=== PATIENT | male | born 1960 | race Caucasian/White ===

== ENCOUNTER → 2017-06-07 | Outpatient (CLI) | payer OTHER, MEDICAID ==
[~2017-06-07] MED LIST: ACETAMINOPHEN-1 EAC1 PO; IBUPROFEN 800800 M1; MEDROLDOSEPACK PO; NORCO 10-325 T1 EACH; ROBAXIN500 MG PO
== END ==
LOC: M.RAD 11:30
DX: M47.896 Other spondylosis, lumbar region (principal)

== ENCOUNTER 2018-03-31 21:02 | Emergency (ER) | payer OTHER, MEDICAID ==
[~2018-03-31] VITALS: Ht 180.3 cm; Wt 87.5 kg
[2018-03-31] MEDS ORDERED: VENTOLIN HFA 1818 GM INH (21:16)
[2018-03-31] MEDS ORDERED: SYMBICORT160 MCG/4. INH (21:17)
[2018-03-31 22:04] LABS: ABSOLUTE BASOPHILS 0.1 thou/uL (0.0-0.2); ABSOLUTE EOSINOPHILS 0.1 thou/uL (0.0-0.7); ABSOLUTE LYMPHOCYTES 1.5 thou/uL (0.8-5.3); ABSOLUTE MONOCYTES 0.8 thou/uL (0.0-1.2); ABSOLUTE NEUTROPHILS 6.9 thou/uL (1.6-8.1); BASOPHILS 0.8 %; EOSINOPHILS 0.7 %; HEMATOCRIT 43.9 % (42.0-52.0); HEMOGLOBIN 14.4 gm/dL (14.0-18.0); LYMPHOCYTES 15.9 %; MCH 29.6 pg (26.0-34.0); MCHC 32.8 g/dL (28.0-37.0); MCV 90.3 fL (80.0-100.0); MONOCYTES 8.2 %; MPV 6.7 fl. (7.2-11.1); NUCLEATED RBCS 0 /100WBC; PLATELET COUNT* 352 thou/uL (150-400); POLYS 74.4 %; RBC 4.86 mil/uL (4.50-6.00); RDW-CV 13.3 % (10.5-14.5); WBC 9.3 thou/uL (4.0-11.0)
[2018-03-31 22:10] LABS: CREATININE 1.3 mg/dL (0.6-1.3)
[2018-03-31 22:16] LABS: PROTIME 10.7 Seconds (9.20-11.50)
[2018-03-31] MEDS ORDERED: ONDANSETRON HCL4 M2 PO (22:16)
[2018-03-31 22:17] LABS: APTT 26.6 Seconds (25.0-31.3)
[2018-03-31 23:05] VITALS: BP 176/73
== END 2018-03-31 23:08 | disposition home or self-care (01) ==
LOC: M.ERS 21:02
PROVIDERS: Nurse Practitioner Family
DX: S06.0X0A Concussion without loss of consciousness, initial encounter (principal); S01.01XA Laceration without foreign body of scalp, initial encounter; S02.2XXA Fracture of nasal bones, initial encounter for closed fracture; M54.9 Dorsalgia, unspecified; G89.29 Other chronic pain; Y00.XXXA Assault by blunt object, initial encounter; Y93.89 Activity, other specified; Y92.89 Other specified places as the place of occurrence of the external cause; Y99.8 Other external cause status

== ENCOUNTER 2018-04-12 19:27 | Emergency (ER) | payer OTHER, MEDICAID ==
[~2018-04-12] VITALS: Ht 180.3 cm; Wt 86.2 kg
[~2018-04-12 19:27] MED LIST changes: +ONDANSETRON HCL4 M2 PO; +SYMBICORT160 MCG/4. INH; +VENTOLIN HFA 1818 GM INH
[2018-04-12] MEDS ORDERED: AMOXICILLIN 50500 MG (19:43)
[2018-04-12] MEDS ORDERED: NORCO 5-325 TA1 EACH PO (20:17)
[2018-04-12 20:43] VITALS: BP 149/99
== END 2018-04-12 20:44 | disposition home or self-care (01) ==
LOC: M.ERS 19:27
DX: S93.691A Other sprain of right foot, initial encounter (principal); S93.491A Sprain of other ligament of right ankle, initial encounter; F17.200 Nicotine dependence, unspecified, uncomplicated; M54.9 Dorsalgia, unspecified; G89.29 Other chronic pain; Z90.79 Acquired absence of other genital organ(s); W10.9XXA Fall (on) (from) unspecified stairs and steps, initial encounter; Y92.89 Other specified places as the place of occurrence of the external cause; Y93.89 Activity, other specified; Y99.8 Other external cause status

== ENCOUNTER 2019-02-14 13:38 | Emergency (ER) | payer OTHER, MEDICAID ==
[~2019-02-14] VITALS: Ht 180.3 cm; Wt 81.7 kg
[~2019-02-14 13:38] MED LIST changes: +AMOXICILLIN 50500 MG; +NORCO 5-325 TA1 EACH PO
[2019-02-14 14:14] LABS: ABSOLUTE BASOPHILS 0.1 thou/uL (0.0-0.2); ABSOLUTE EOSINOPHILS 0.7 thou/uL (0.0-0.7); ABSOLUTE LYMPHOCYTES 2.8 thou/uL (0.8-5.3); ABSOLUTE MONOCYTES 0.8 thou/uL (0.0-1.2); ABSOLUTE NEUTROPHILS 4.1 thou/uL (1.6-8.1); BASOPHILS 1.3 %; EOSINOPHILS 8.1 %; HEMATOCRIT 48.8 % (42.0-52.0); HEMOGLOBIN 16.4 gm/dL (14.0-18.0); LYMPHOCYTES 32.8 %; MCH 29.7 pg (26.0-34.0); MCHC 33.6 g/dL (28.0-37.0); MCV 88.3 fL (80.0-100.0); MONOCYTES 9.7 %; MPV 7.3 fl. (7.2-11.1); NUCLEATED RBCS 0 /100WBC; PLATELET COUNT* 346 thou/uL (150-400); POLYS 48.1 %; RBC 5.53 mil/uL (4.50-6.00); RDW-CV 13.4 % (10.5-14.5); WBC 8.5 thou/uL (4.0-11.0)
[2019-02-14 14:23] LABS: CALCIUM 8.8 mg/dL (8.5-10.1); POTASSIUM 4.5 mmol/L (3.5-5.1)
[2019-02-14 14:25] LABS: APTT 27.2 Seconds (25.0-31.3); PROTIME 10.4 Seconds (9.20-11.50)
[2019-02-14 14:34] LABS: ALBUMIN 3.6 g/dL (3.4-5.0); TOTAL BILIRUBIN 0.2 mg/dL (<0.1-1.0); TOTAL PROTEIN 7.8 g/dL (6.4-8.2)
[2019-02-14] MEDS ORDERED: ZPAK PO (15:19)
[2019-02-14] MEDS ORDERED: PREDNISONE50 MG PO (15:19)
[2019-02-14] MEDS ORDERED: VENTOLIN HFA 1818 GM INH (15:19)
[2019-02-14 15:30] VITALS: BP 122/80
--- NOTE | 2019-02-15 11:05 | EKG ---
[place] [address] ELECTROCARDIOGRAM REPORT Name: AMARILYSMIKAEL CEDILLO FELIZ [id number] Admission: 02/14/19 Attend Phys: Discharge: 02/14/19 Date of : 62 Report #: [id number] THIS REPORT FOR: //name// [facility] ED Test Date: 2019-02-14 Test Time: 14:02:43 Pat Name: MIKAEL PANDA Department: Room: Gender: M Qa Test Lead: : 1960 Requested By: Cristopher Rushing Order Number: [id number] MD: Christo Tay Measurements Intervals [place] Rate: 78 P: 52 [place]: 152 QRS: 55 QRSD: 88 T: 67 QT: 356 QTc: 406 Interpretive Statements Sinus rhythm Baseline wander in lead(s) V4 Compared to ECG 02/07/2007 20:15:44 No significant changes Electronically Signed On 02-15-2019 11:04:37 UNIVERSITY ADMINISTRATOR by Christo Tay [email or web address] <ELECTRONICALLY SIGNED> By: Christo Tay MD, [facility] 02/15/19 1104 1402 01 Christo Tay MD, FACC /EPI
== END 2019-02-14 15:31 | disposition home or self-care (01) ==
LOC: M.ERS 13:38
PROVIDERS: Emergency Medicine Emergency Medical Services
DX: J44.1 Chronic obstructive pulmonary disease with (acute) exacerbation (principal); G89.29 Other chronic pain; Z87.891 Personal history of nicotine dependence

== ENCOUNTER → 2019-03-29 | Outpatient (CLI) | payer OTHER, MEDICAID ==
[~2019-03-29] MED LIST changes: +PREDNISONE50 MG PO; +ZPAK PO
== END ==
LOC: M.RAD 16:47
DX: J44.1 Chronic obstructive pulmonary disease with (acute) exacerbation (principal)

== ENCOUNTER 2019-04-23 16:48 | Emergency (ER) | payer OTHER, MEDICAID ==
[~2019-04-23] VITALS: Ht 180.3 cm; Wt 88.5 kg
[2019-04-23] MEDS ORDERED: NORCO 10-325 T1 EACH PO (17:00)
[2019-04-23 17:40] LABS: ABSOLUTE BASOPHILS 0.1 thou/uL (0.0-0.2); ABSOLUTE EOSINOPHILS 1.1 thou/uL (0.0-0.7); ABSOLUTE LYMPHOCYTES 1.7 thou/uL (0.8-5.3); ABSOLUTE MONOCYTES 1.1 thou/uL (0.0-1.2); ABSOLUTE NEUTROPHILS 10.8 thou/uL (1.6-8.1); BASOPHILS 0.5 %; EOSINOPHILS 7.4 %; HEMATOCRIT 43.3 % (42.0-52.0); HEMOGLOBIN 14.4 gm/dL (14.0-18.0); LYMPHOCYTES 11.5 %; MCHC 33.3 g/dL (28.0-37.0); MCV 90.1 fL (80.0-100.0); MONOCYTES 7.2 %; MPV 7.2 fl. (7.2-11.1); NUCLEATED RBCS 0 /100WBC; PLATELET COUNT* 285 thou/uL (150-400); POLYS 73.4 %; RBC 4.81 mil/uL (4.50-6.00); RDW-CV 13.4 % (10.5-14.5); WBC 14.7 thou/uL (4.0-11.0)
[2019-04-23 17:48] LABS: CREATININE 0.7 mg/dL (0.6-1.3)
[2019-04-23] MEDS ORDERED: AZITHROMYCIN 2250 MG PO (17:57)
[2019-04-23] MEDS ORDERED: MEDROL DOSPAK21 TA1 PO (17:57)
[2019-04-23] MEDS ORDERED: VENTOLIN HFA 1818 GM INH (17:57)
[2019-04-23 17:59] LABS: ALBUMIN 3.5 g/dL (3.4-5.0); TOTAL BILIRUBIN 0.6 mg/dL (<0.1-1.0); TOTAL PROTEIN 7.3 g/dL (6.4-8.2)
[2019-04-23 18:20] LABS: INFLUENZA A ANTIGEN Negative (Negative); INFLUENZA B ANTIGEN Negative (Negative)
[2019-04-23 18:28] VITALS: BP 141/81
--- NOTE | 2019-04-24 10:47 | EKG ---
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: : 1960 Requested By: Dontrell Ojeda Order Number: [id number] MD: Christo Tay Measurements Intervals [place] Rate: 110 P: 69 [place]: 136 QRS: 70 QRSD: 95 T: 54 QT: 314 QTc: 425 Interpretive Statements Sinus tachycardia artifact noted Baseline wander in lead(s) V2 Compared to ECG 02/14/2019 14:02:43 Sinus rhythm no longer present Electronically Signed On 04-24-2019 10:46:27 CDT by Christo Tay [email or web address] <ELECTRONICALLY SIGNED> By: Christo Tay MD, [facility] 04/24/19 1046 1654 1654 Christo Tay MD, [facility] /EPI
== END 2019-04-23 18:29 | disposition home or self-care (01) ==
LOC: M.ERS 16:48
PROVIDERS: Emergency Medicine; Nurse Practitioner Family
DX: J44.1 Chronic obstructive pulmonary disease with (acute) exacerbation (principal); G89.29 Other chronic pain; Z87.891 Personal history of nicotine dependence

== ENCOUNTER 2019-05-04 07:16 | Emergency (ER) | payer OTHER, MEDICAID ==
[~2019-05-04] VITALS: Ht 180.3 cm; Wt 86.2 kg
[~2019-05-04 07:16] MED LIST changes: +AZITHROMYCIN 2250 MG PO; +MEDROL DOSPAK21 TA1 PO; +NORCO 10-325 T1 EACH PO
[2019-05-04 07:50] LABS: HEMATOCRIT 43.8 % (42.0-52.0); HEMOGLOBIN 14.7 gm/dL (14.0-18.0); MCH 30.3 pg (26.0-34.0); MCHC 33.5 g/dL (28.0-37.0); MCV 90.4 fL (80.0-100.0); MPV 6.8 fl. (7.2-11.1); NUCLEATED RBCS 0 /100WBC; PLATELET COUNT* 325 thou/uL (150-400); RBC 4.85 mil/uL (4.50-6.00); RDW-CV 13.8 % (10.5-14.5); WBC 9.5 thou/uL (4.0-11.0)
[2019-05-04 07:59] LABS: CREATININE 0.8 mg/dL (0.6-1.3); POTASSIUM 4.1 mmol/L (3.5-5.1)
[2019-05-04 08:03] LABS: ALBUMIN 3.5 g/dL (3.4-5.0); MAGNESIUM 2.1 mg/dL (1.8-2.4); TOTAL BILIRUBIN 0.4 mg/dL (<0.1-1.0)
[2019-05-04 08:21] LABS: ABSOLUTE BASOPHILS 0.1 thou/uL (0.0-0.2); ABSOLUTE EOSINOPHILS 1.3 thou/uL (0.0-0.7); ABSOLUTE LYMPHOCYTES 2.6 thou/uL (0.8-5.3); ABSOLUTE MONOCYTES 0.8 thou/uL (0.0-1.2); ABSOLUTE NEUTROPHILS 4.8 thou/uL (1.6-8.1); ATYPICAL LYMPHS 2 %; PLATELET ESTIMATE ADEQUATE
[2019-05-04 08:23] LABS: BE 1.2 mmol/L (-2 to +3); PO2 68.7 mmHg (75.0-100.0)
[2019-05-04 08:55] LABS: URINE BILIRUBIN NEGATIVE (Negative); URINE BLOOD NEGATIVE (Negative); URINE CLARITY CLEAR; URINE COLOR YELLOW; URINE GLUCOSE-RANDOM NEGATIVE (Negative); URINE KETONES NEGATIVE (Negative); URINE LEUKOCYTES-REFLEX NEGATIVE (Negative); URINE NITRITE-REFLEX NEGATIVE (Negative); URINE PROTEIN NEGATIVE (Negative); URINE SPECIFIC GRAVITY 1.025 (1.005-1.030); URINE UROBILINOGEN 0.2 E.U./dl (0.2-1.0)
[2019-05-04] MEDS ORDERED: AZITHROMYCIN 2250 MG PO (09:01)
[2019-05-04] MEDS ORDERED: IPRAT-ALBUT 0.5-3 ML INH (09:01)
[2019-05-04] MEDS ORDERED: NEBULIZER MISCELL (09:01)
[2019-05-04] MEDS ORDERED: MEDROLDOSEPACK PO (09:01)
[2019-05-04 10:19] VITALS: BP 129/90
== END 2019-05-04 10:21 | disposition home or self-care (01) ==
LOC: M.ERS 07:16
PROVIDERS: Personal Emergency Response Attendant
DX: J44.1 Chronic obstructive pulmonary disease with (acute) exacerbation (principal); Z87.891 Personal history of nicotine dependence

== ENCOUNTER 2019-05-13 12:13 | Inpatient (IN) | payer OTHER, MEDICAID ==
[~2019-05-13] VITALS: Ht 180.3 cm; Wt 85.7 kg
[~2019-05-13 12:13] MED LIST changes: +IPRAT-ALBUT 0.5-3 ML INH; +NEBULIZER MISCELL
[2019-05-13] MEDS ORDERED: NORCO 10-325 T1 EACH PO (12:26)
[2019-05-13 12:50] LABS: HEMATOCRIT 46.4 % (42.0-52.0); HEMOGLOBIN 15.7 gm/dL (14.0-18.0); MCH 30.7 pg (26.0-34.0); MCV 90.4 fL (80.0-100.0); MPV 7.4 fl. (7.2-11.1); NUCLEATED RBCS 0 /100WBC; PLATELET COUNT* 325 thou/uL (150-400); RBC 5.13 mil/uL (4.50-6.00); RDW-CV 13.6 % (10.5-14.5); WBC 9.3 thou/uL (4.0-11.0)
[2019-05-13 13:02] LABS: CALCIUM 8.9 mg/dL (8.5-10.1); CREATININE 0.9 mg/dL (0.6-1.3); POTASSIUM 3.9 mmol/L (3.5-5.1)
--- NOTE | 2019-05-13 13:03 | NUR ---
PATIENT MOVED TO ROOM 13 FOR BREATHING TREATMENTS
[2019-05-13 13:08] LABS: INFLUENZA A ANTIGEN Negative (Negative); INFLUENZA B ANTIGEN Negative (Negative)
[2019-05-13 13:12] LABS: ALBUMIN 3.8 g/dL (3.4-5.0); MAGNESIUM 2.1 mg/dL (1.8-2.4); TOTAL BILIRUBIN 0.3 mg/dL (<0.1-1.0); TOTAL PROTEIN 7.5 g/dL (6.4-8.2)
--- NOTE | 2019-05-13 13:17 | NUR ---
RESP TREATMENTS COMPLETE PATIENT REPEATS THAT TREATMENTS HAVE GREATLYL IMPROVED HIS BREATHING
[2019-05-13 13:27] LABS: ABSOLUTE BASOPHILS 0.2 thou/uL (0.0-0.2); ABSOLUTE EOSINOPHILS 1.4 thou/uL (0.0-0.7); ABSOLUTE LYMPHOCYTES 3.4 thou/uL (0.8-5.3); ABSOLUTE MONOCYTES 0.5 thou/uL (0.0-1.2); ABSOLUTE NEUTROPHILS 3.8 thou/uL (1.6-8.1); PLATELET ESTIMATE ADEQUATE
--- NOTE | 2019-05-13 13:46 | NUR ---
PATIENTS BREATHING IS MUCH IMPROVED. NO RESP DISTRESS NOTED AT THIS TIME WHEEZES IMPROVED
--- NOTE | 2019-05-13 17:47 | NUR ---
PATIENT HAD A RUN OF SVT THAT LASTED JUST A FEW SECONDS. PATIENT DENIES CHEST PAIN OR PALPITATIONS. PATIENT IS NOW BACK IN NSR
[2019-05-13 20:43] VITALS: BP 129/69
[2019-05-14] VITALS: BP 130/76
[2019-05-14 04:00] VITALS: BP 136/62
[2019-05-14 05:44] LABS: ABSOLUTE LYMPHOCYTES 1.3 thou/uL (0.8-5.3); ABSOLUTE NEUTROPHILS 7.3 thou/uL (1.6-8.1); BASOPHILS 0.3 %; EOSINOPHILS 0.1 %; HEMATOCRIT 44.5 % (42.0-52.0); HEMOGLOBIN 14.7 gm/dL (14.0-18.0); LYMPHOCYTES 13.6 %; MCV 90.8 fL (80.0-100.0); MONOCYTES 6.5 %; MPV 6.8 fl. (7.2-11.1); PLATELET COUNT* 306 thou/uL (150-400); POLYS 79.5 %; RDW-CV 13.1 % (10.5-14.5); WBC 9.2 thou/uL (4.0-11.0)
[2019-05-14 05:45] LABS: ABSOLUTE MONOCYTES 0.6 thou/uL (0.0-1.2); NUCLEATED RBCS 0 /100WBC
[2019-05-14 06:13] LABS: ALBUMIN 3.3 g/dL (3.4-5.0); CALCIUM 8.5 mg/dL (8.5-10.1); CREATININE 0.7 mg/dL (0.6-1.3); POTASSIUM 4.4 mmol/L (3.5-5.1); TOTAL BILIRUBIN 0.4 mg/dL (<0.1-1.0); TOTAL PROTEIN 6.9 g/dL (6.4-8.2)
--- NOTE | 2019-05-14 07:15 | NUR ---
PATIENT ADMITTED TO ROOM 110 FROM THE ER AT APPROXIMATELY 2100. VSS ON 2L 02 VIA NASAL CANNULA. PATIENT ORIENTED TO ROOM AND POLICIES AND FALL EDUCATION GIVEN AND FALL AGREEMENT SIGNED. ASSESSMENT CHARTED. IV IN RIGHT AC-SL. PATIENT HAS HAD NO C/O OF SOA SINCE BEING ADMITTED. INSTRUCTED PATIENT TO CALL IF NEEDING PRN BREATHING TREATMENT. HOURLY ROUNDS MADE. WILL CONTINUE WITH PLAN OF CARE AND NURSING TO MONITOR.
[2019-05-14 08:00] VITALS: BP 109/70
--- NOTE | 2019-05-14 10:32 | NUR ---
Pt lives at home with . Pt has a cane. No known needs or history of SNF or HH services. SW/CM to remain available to assist with safe dc planning if needs arise.
--- NOTE | 2019-05-14 10:48 | NUR ---
ASSUMED PT CARE AT O800, AOX4, UP SBA, O2 SAT 90'S 2L NC, TRACING SR ON TELE. PT COMPLAINS OF CONSTANT BACK PAIN. MEDS GIVEN. VSS, AM ASSESSMENT ASSESSMENT CHARTED. WILL CONTINUE TO MONITOR
[2019-05-14 16:00] VITALS: BP 111/65
[2019-05-14 20:10] VITALS: BP 122/78
[2019-05-14 23:59] VITALS: BP 114/67
[2019-05-15 04:00] VITALS: BP 110/71
[2019-05-15 04:47] LABS: ABSOLUTE LYMPHOCYTES 1.6 thou/uL (0.8-5.3); ABSOLUTE MONOCYTES 0.8 thou/uL (0.0-1.2); ABSOLUTE NEUTROPHILS 10.4 thou/uL (1.6-8.1); BASOPHILS 0.2 %; EOSINOPHILS 0.1 %; HEMATOCRIT 44.6 % (42.0-52.0); HEMOGLOBIN 14.6 gm/dL (14.0-18.0); LYMPHOCYTES 12.7 %; MCH 29.6 pg (26.0-34.0); MCHC 32.7 g/dL (28.0-37.0); MCV 90.5 fL (80.0-100.0); MONOCYTES 6.1 %; MPV 6.9 fl. (7.2-11.1); NUCLEATED RBCS 0 /100WBC; PLATELET COUNT* 306 thou/uL (150-400); POLYS 80.9 %; RBC 4.93 mil/uL (4.50-6.00); RDW-CV 13.3 % (10.5-14.5); WBC 12.8 thou/uL (4.0-11.0)
[2019-05-15 05:17] LABS: ALBUMIN 3.2 g/dL (3.4-5.0); CALCIUM 8.1 mg/dL (8.5-10.1); CREATININE 0.9 mg/dL (0.6-1.3); TOTAL BILIRUBIN 0.2 mg/dL (<0.1-1.0); TOTAL PROTEIN 6.6 g/dL (6.4-8.2)
--- NOTE | 2019-05-15 07:52 | NUR ---
PT CARE ASSUMED AT 1930. SAT MAINTAINED IN O2. ALERT AND ORIENTED X4. C/O PAIN. MEDICATION GIVEN PER EMAR. CALL LIGHT WITHIN REACH AND BED AND LOW POSITION. HOURLY ROUNDING DONE FOR PT SAFETY.
[2019-05-15 08:00] VITALS: BP 133/55
[2019-05-15] MEDS ORDERED: LEVAQUIN 750 M750 MG PO (11:38)
[2019-05-15] MEDS ORDERED: PREDNISONE 5 MG5 M1 PO (11:39)
[2019-05-15 12:00] VITALS: BP 117/68
--- NOTE | 2019-05-15 12:27 | NUR ---
CM confirmed that Pt does have a nebulizer, but does not currently use home o2. Pt hopes to wean off o2 prior to dc home.
[2019-05-15 12:35] VITALS: BP 117/68
--- NOTE | 2019-05-15 13:11 | NUR ---
ASSUMED PT CARE AT 0800, AOX4, UP AD FREDDIE, O2 SAT 90'S RA. TRACING SR ON TELE. PT DENIES PAIN. PT FOR DISCHARGE. HAD REST AND EXER, RT NOTED PT DOESNT NEED O2 SUPPLEMENT AT HOME. VSS, AM ASSESSMENT CHARETED, MEDS GIVEN PER APR. WILL CONTINUE TO MONITOR.
--- NOTE | 2019-05-15 13:29 | NUR ---
DISCHARGED PLAN DISCUSS WITH PT. MEDICATION PACKET/SCRIPT GIVEN. IV, TELE REMOVED. ALL BELONGINGS PACKED AND CHECKED. LEFT THE UNIT AT 1325 VIA WHEELCHAIR.
--- NOTE | 2019-05-17 12:23 | EKG ---
[place] [address] ELECTROCARDIOGRAM REPORT Name: MIKAEL PANDA Room: [address] R.#: [id number] Admission: 05/13/19 Attend Phys: Jr Garcia Discharge: 05/15/19 Date of : 62 Date of Service: 05/13/19 1237 Report #: [id number] THIS REPORT FOR: //name// [facility] ED Test Date: 2019-05-13 Test Time: 12:37:21 Pat Name: MIKAEL PANDA Department: Room: [facility] Gender: M Clerk Carrier: DARCY : 1960 Requested By: Cristopher Rushing Order Number: [id number] MD: Christo Tay Measurements Intervals [place] Rate: 89 P: 65 [place]: 144 QRS: 62 QRSD: 96 T: 66 QT: 344 QTc: 419 Interpretive Statements Sinus rhythm Supraventricular bigeminy Compared to ECG 04/23/2019 16:54:51 Atrial premature complex(es) now present Sinus tachycardia no longer present Electronically Signed On 05-13-2019 15:31:38 CDT by Christo Tay [email or web address] <ELECTRONICALLY SIGNED> By: Christo Tay MD, [facility] 05/13/19 1531 1237 1237 Christo Tay MD, [facility] /EPI
== END 2019-05-15 13:25 | disposition home or self-care (01) | DRG 193 ==
LOC: M.ERS 12:13 → M.TBA-ER 14:13 → M.ORTHSURG 14:13 → M.2W 05-14 11:10
PROVIDERS: Emergency Medicine Emergency Medical Services; ADMIT Internal Medicine
DX: J12.9 Viral pneumonia, unspecified (principal); J96.20 Acute and chronic respiratory failure, unspecified whether with hypoxia or hypercapnia; J44.1 Chronic obstructive pulmonary disease with (acute) exacerbation; R65.10 Systemic inflammatory response syndrome (SIRS) of non-infectious origin without acute organ dysfunction; J44.0 Chronic obstructive pulmonary disease with (acute) lower respiratory infection; Z96.89 Presence of other specified functional implants; F17.210 Nicotine dependence, cigarettes, uncomplicated; G89.29 Other chronic pain; M54.9 Dorsalgia, unspecified; Z03.818 Encounter for observation for suspected exposure to other biological agents ruled out

== ENCOUNTER → 2020-01-15 | Outpatient (CLI) | payer OTHER, MEDICAID ==
[~2020-01-15] MED LIST changes: +LEVAQUIN 750 M750 MG PO; +PREDNISONE 5 MG5 M1 PO
== END ==
LOC: M.ULTRA 11:00
PROVIDERS: ATTEND Internal Medicine
DX: R22.2 Localized swelling, mass and lump, trunk (principal)

== ENCOUNTER → 2020-04-07 | Emergency (ER) | payer OTHER, MEDICAID ==
[~2020-04-07] VITALS: Ht 180.3 cm; Wt 88.0 kg
[2020-04-07 15:37] VITALS: BP 146/92
--- NOTE | 2020-04-07 17:21 | EKG ---
[place] [address] ELECTROCARDIOGRAM REPORT Name: MIKAEL PANDA Room: [facility]#: [id number] Admission: 04/07/20 Attend Phys: Discharge: Date of : 62 Date of Service: 04/07/20 1517 Report #: [id number] THIS REPORT FOR: //name// [facility] ED Test Date: 2020-04-07 Test Time: 15:17:12 Pat Name: MIKAEL PANDA Department: Room: Gender: Hand I Cutter: [employer] : 1960 Requested By: Yennifer Mills Order Number: [id number] MD: Kyle Sue Measurements Intervals [place] Rate: 121 P: 47 [place]: 148 QRS: 32 QRSD: 97 T: 64 QT: 326 QTc: 463 Interpretive Statements Sinus tachycardia Atrial premature complexes Low voltage, extremity and precordial leads Baseline wander in lead(s) III,V6 Compared to ECG 05/13/2019 12:37:21 Low QRS voltage now present Sinus rhythm no longer present Electronically Signed On 04-07-2020 17:21:03 INTERTYPE OPERATOR by Kyle Sue [email or web address] <ELECTRONICALLY SIGNED> By: Kyle Sue MD, [facility] 04/07/20 1721 1517 1517 Kyle Sue MD, [facility] /EPI
== END ==
LOC: M.ERS 15:09
DX: F41.9 Anxiety disorder, unspecified (principal); F60.0 Paranoid personality disorder; J44.9 Chronic obstructive pulmonary disease, unspecified; Z87.891 Personal history of nicotine dependence; G89.29 Other chronic pain

== ENCOUNTER → 2020-04-24 | Outpatient (CLI) | payer OTHER, MEDICAID | LOC: M.RAD 10:36 | PROVIDERS: ATTEND Internal Medicine | DX: J44.9 Chronic obstructive pulmonary disease, unspecified (principal); J98.4 Other disorders of lung ==